=== PATIENT | female | born 2000 | race Caucasian/White ===

== ENCOUNTER → 2019-07-31 11:32 | Outpatient (CLI) | payer BC, MEDICAID, SELFPAY ==
[2019-07-31 11:23] VITALS: BMI 20.6
[2019-07-31 11:36] LABS: Mucous, Urine 0 SEEN /hpf (<or=2+); Red Blood Cells-Urine 0 SEEN /hpf (0-5); White Blood Cells 0 SEEN /hpf (0-5)
[2019-07-31 12:37] LABS: Absolute Lymphocyte Count 2.26 X10^3/uL (0.83-4.51); Absolute Neutrophil Count 4.7 X10^3/uL (2.0-7.7); Basophil# 0.06 X10^3/uL; Basophil% 0.7 % (0-1); Eosinophil# 0.25 X10^3/uL; Eosinophils% 3.1 % (0-5); Hematocrit 40.8 % (37-47); Hemoglobin 13.6 g/dL (12.0-15.0); Lymphocyte # 2.26 X10^3/ul (4.0); Lymphocyte % 28.2 % (19-41); Mean Corp Hgb Conc 33.3 g/dL (32-36); Mean Corpuscular Hgb 32.1 pg (27.0-32.0); Mean Corpuscular Volume 96.2 fL (81-99); Mean Platelet Vol. 9.5 fl (6.2-12.0); Monocyte# 0.71 X10^3/uL; Monocyte% 8.9 % (0-10); NRBC Flagged by Analyzer 0 % (0-5); Neutrophil # 4.69 X10^3/uL (2.7-7.7); Neutrophil % 58.6 % (47-70); Platelet Count 281 K/mm3 (150-450); RBC Distribution Width CV 12.5 % (11.6-14.6); Red Blood Count 4.24 M/mm3 (4.2-5.4)
[2019-07-31 12:40] LABS: Color, Urine Yellow (Yellow); Glucose, Dipstick Normal (Normal); Ketone-Dipstick Negative (Negative); Leukocyte Esterase-Dipstick Negative /ul (Negative); Nitrite-Dipstick Positive (Negative); Occult Blood-Urine Negative /ul (Negative); Protein-Dipstick Negative (Negative); Urine Bilirubin Dipstick Negative (Negative); Urine Clarity Sl. Cloudy (Clear); Urine Urobilinogen Normal (Normal); Urine pH 6.5 (5.0 - 8.0)
[2019-07-31 12:47] LABS: Bacteria 2+ /hpf (None Seen); Squamous Epithelial Cells - UA 5-10 SEEN /hpf (5-10)
[2019-07-31 12:48] LABS: Internal QC Validated? YES +Cl - CLEAR BKGD
[2019-07-31 12:52] LABS: Pregnancy, Urine Positive Negative
[2019-07-31 13:23] LABS: ALB/GLOB Ratio 1.1 RATIO (0.9-2.4); AST(SGOT) 16 U/L (15-37); Alanine Aminotransfer ALT/SGPT 24 U/L (13-56); Albumin, Serum 3.6 g/dL (3.2-5.0); Alkaline Phosphatase 85 U/L (45-117); Anion Gap 4 (5-15); BUN 9 mg/dL (7-18); BUN/Creat Ratio 17.8 RATIO (10-20); Calcium,Total 8.9 mg/dL (8.5-10.1); Chloride 107 mmol/L (98-107); Cholesterol 137 mg/dL (200); Creatinine, Serum 0.51 mg/dL (0.55-1.02); EST Glomerular Filtration Rate 164 mL/min (>60); Est Glom Filt Rate - Afr Amer 198 mL/min (>60); Globulin 3.3 g/dL (2.2-4.2); Glucose 75 mg/dL (74-106); High Density Lipoprotein 43 mg/dL; Protein, Total 6.9 g/dL (6.4-8.2); Sodium Level 139 mmol/L (136-145); Thyroid Stim Hormone (TSH) 1.47 uIU/mL (0.358-3.74); Triglycerides 66 mg/dL; Very Low Density Lipoprotein 13 mg/dL (5-40)
[2019-07-31 14:04] LABS: HIV - WCH Non-Reactive (Nonreactive); Hepatitis B Surface Antigen Non-Reactive (Nonreactive)
[2019-07-31 14:08] LABS: Chlamydia Trachomatis by PCR Negative (Negative); Neisserai gonorrhoeae by PCR Negative (Negative); Probe Check PASS; Sample Adequacy Control PASS; Specimen Processing Control PASS
[2019-07-31 16:29] LABS: hCG Titer Quant., Serum 33 mIU/mL (1-3)
[2019-08-01 04:09] LABS: Hepatitis C Ab 0.1 s/co ratio (0.0-0.9)
== END ==
LOC: BIMLAB 11:34 → LAB 15:20 → BIMLAB 15:24
PROVIDERS: Obstetrics & Gynecology; PCP Internal Medicine; Referring Provider Nurse Practitioner Family; Visit Provider Nurse Practitioner Family
DX: F19.10 Other psychoactive substance abuse, uncomplicated (principal); F15.10 Other stimulant abuse, uncomplicated; N39.0 Urinary tract infection, site not specified; N91.2 Amenorrhea, unspecified; Z72.51 High risk heterosexual behavior
CPT/HCPCS: 36415; 80053; 80061; 81001; 81025; 84443; 84702; 85025; 86703; 86803; 86804; 87086; 87088; 87186; 87340; 87491; 87591

== ENCOUNTER → 2019-08-05 09:29 | Outpatient (CLI) | payer BC, MEDICAID, SELFPAY ==
[2019-07-31 11:23] VITALS: BMI 20.6
[2019-08-05 10:56] LABS: hCG Titer Quant., Serum 686 mIU/mL (1-3)
== END ==
PROVIDERS: PCP Internal Medicine; Referring Provider Obstetrics & Gynecology; Visit Provider Obstetrics & Gynecology
DX: Z34.90 Encounter for supervision of normal pregnancy, unspecified, unspecified trimester (principal)
CPT/HCPCS: 36415; 84702

== ENCOUNTER → 2019-09-03 | Outpatient (CLI) | payer BC, MEDICAID, SELFPAY ==
[2019-09-03 12:06] VITALS: BMI 20.5
[2019-09-03 15:50] LABS: Amphetamine Urine VISTA NEGATIVE (<1000 ng/mL); Barbiturate Urine VISTA NEGATIVE (< 200 ng/mL); Benzodiazepine Urine VISTA NEGATIVE (< 200 ng/mL); Cocaine Urine VISTA NEGATIVE (< 300 ng/mL); Ecstacy Urine VISTA NEGATIVE (< 500 ng/mL); Methadone Urine VISTA NEGATIVE (< 300 ng/mL); PCP Urine VISTA NEGATIVE (< 25 ng/mL); THC Urine VISTA POSITIVE (< 50 ng/mL); Vista UDS pH Range 7
[2019-09-03 18:01] LABS: Chlamydia Trachomatis by PCR Negative (Negative); Neisserai gonorrhoeae by PCR Negative (Negative); Probe Check PASS; Sample Adequacy Control PASS; Specimen Processing Control PASS
== END | disposition home or self-care (01) ==
LOC: LABSPEC 15:18
PROVIDERS: PCP Internal Medicine; Referring Provider Obstetrics & Gynecology; Visit Provider Obstetrics & Gynecology
DX: O09.70 Supervision of high risk pregnancy due to social problems, unspecified trimester (principal); Z3A.00 Weeks of gestation of pregnancy not specified
CPT/HCPCS: 80307; 87086; 87088; 87186; 87491; 87591

== ENCOUNTER → 2019-10-05 08:55 | Outpatient (CLI) | payer BC, MEDICAID, SELFPAY ==
[2019-10-05 08:34] VITALS: BMI 20.5
[2019-10-05 09:23] LABS: Absolute Lymphocyte Count 2.17 X10^3/uL (0.83-4.51); Absolute Neutrophil Count 5.8 X10^3/uL (2.0-7.7); Basophil# 0.05 X10^3/uL; Basophil% 0.6 % (0-1); Eosinophil# 0.19 X10^3/uL; Eosinophils% 2.1 % (0-5); Hematocrit 38.5 % (37-47); Hemoglobin 13.3 g/dL (12.0-15.0); Lymphocyte # 2.17 X10^3/ul (4.0); Lymphocyte % 24.2 % (19-41); Mean Corp Hgb Conc 34.5 g/dL (32-36); Mean Corpuscular Hgb 32.8 pg (27.0-32.0); Mean Corpuscular Volume 94.8 fL (81-99); Mean Platelet Vol. 9.2 fl (6.2-12.0); Monocyte# 0.69 X10^3/uL; Monocyte% 7.7 % (0-10); NRBC Flagged by Analyzer 0 % (0-5); Neutrophil # 5.82 X10^3/uL (2.7-7.7); Neutrophil % 64.7 % (47-70); Platelet Count 251 K/mm3 (150-450); RBC Distribution Width CV 11.8 % (11.6-14.6); RBC Distribution Width SD 40.8 fl (35.1-43.9); Red Blood Count 4.06 M/mm3 (4.2-5.4)
[2019-10-05 10:01] LABS: NATERA MAILED SPECIMEN
[2019-10-05 10:27] LABS: HIV - WCH Non-Reactive (Nonreactive); Hepatitis B Surface Antigen Non-Reactive (Nonreactive); Hepatitis C Antibody Non-Reactive (Nonreactive); Rubella IgG 473.3 IU/mL
[2019-10-07 23:32] LABS: Rapid Plasmin Reagin (RPR) NONREACTIVE (NONREACTIVE)
== END ==
PROVIDERS: PCP Internal Medicine; Referring Provider Obstetrics & Gynecology; Visit Provider Obstetrics & Gynecology
DX: Z31.430 Encounter of female for testing for genetic disease carrier status for procreative management (principal); O09.70 Supervision of high risk pregnancy due to social problems, unspecified trimester; Z3A.00 Weeks of gestation of pregnancy not specified
CPT/HCPCS: 36415; 85025; 86592; 86703; 86762; 86803; 86850; 86900; 86901; 87340

== ENCOUNTER → 2019-11-17 | Outpatient (CLI) | payer BC, MEDICAID, SELFPAY ==
[2019-11-17 13:09] VITALS: BMI 20.5
== END | disposition home or self-care (01) ==
LOC: LABSPEC 15:32
PROVIDERS: PCP Internal Medicine; Referring Provider Obstetrics & Gynecology; Visit Provider Obstetrics & Gynecology
DX: O09.70 Supervision of high risk pregnancy due to social problems, unspecified trimester (principal); Z3A.00 Weeks of gestation of pregnancy not specified
CPT/HCPCS: 87077; 87086; 87088; 87186

== ENCOUNTER → 2019-12-18 | Outpatient (CLI) | payer BC, MEDICAID, SELFPAY ==
[2019-12-18 13:38] VITALS: BMI 20.5
== END | disposition home or self-care (01) ==
LOC: LABSPEC 16:11
PROVIDERS: PCP Internal Medicine; Referring Provider Obstetrics & Gynecology; Visit Provider Obstetrics & Gynecology
DX: O99.89 Other specified diseases and conditions complicating pregnancy, childbirth and the puerperium (principal); R82.71 Bacteriuria; Z3A.00 Weeks of gestation of pregnancy not specified
CPT/HCPCS: 87077; 87086; 87088; 87186

== ENCOUNTER → 2020-05-19 | Outpatient (CLI) | payer BC, MEDICAID, SELFPAY ==
[2020-05-19 13:04] VITALS: BMI 23.8
[2020-05-24 11:00] LABS: HPV Reflexed? NOT INDICATED
== END | disposition home or self-care (01) ==
LOC: LABSPEC 16:20
PROVIDERS: PCP Internal Medicine; Visit Provider Obstetrics & Gynecology
DX: Z12.4 Encounter for screening for malignant neoplasm of cervix (principal)
CPT/HCPCS: 88175; G0145

== ENCOUNTER 2022-08-04 12:12 | Inpatient (IN) | payer BC, MEDICAID, SELFPAY ==
[2022-08-04 12:13] VITALS: BP 104/68; PULSE 123; RESP 15; TEMP 36.7; O2SAT 97; BMI 16.5
--- NOTE | 2022-08-04 12:40 | EKG12_ITS ---
Test Reason : Blood Pressure : / mmHG Vent. Rate : 099 BPM Atrial Rate : 099 BPM P-R Int : 160 ms QRS Dur : 092 ms QT Int : 340 ms P-R-T Axes : 069 097 056 degrees QTc Int : 436 ms Normal sinus rhythm Normal ECG Confirmed by MAYCOL HERR, HAMZAH ([id number]), video editor NELDA NORIEGA ([id number]) on 08/06/2022 9:38:27 AM Referred By: ESTHER Confirmed By:HAMZAH SEVERINO MD
--- NOTE | 2022-08-04 13:17 | ED.RN ---
per dr. barrera pt does not need a sitter at this time.
--- NOTE | 2022-08-04 13:38 | EX.ED.SAOD ---
HPI History of Present Illness Chief Complaint: Suicidal Informant: patient Narrative Narrative: Patient is a 22-year-old female with long-term history of polysubstance abuse presenting for request for detox. Patient states he started using drugs since she was 16 years old and been using them pretty consistently. She usually snorts or smokes and has done IV drugs once. She uses marijuana, methamphetamines and benzodiazepines. Her Binz of choice is Klonopin but sometimes she will use Xanax as she cannot get Klonopin. She states she just cannot anymore. She has lost custody of her daughter is had significant weight loss so she would like to try to detox. She does report that she has had some depression but attributes it to the stress in her life and her drug use. She states she fights a lot with her boyfriend. She has thoughts that the world would be a better place without her and her daughter deserves a better mother but she denies any suicidal plan or active ideation. She denies any history of suicide attempt. Patient is hoping to go to [facility] after discharge from the hospital. Mother is at the bedside currently. No other complaints or concerns at this time. [facility] Medical History Drug abuse Marijuana use Methamphetamine abuse in remission Tobacco smoking complicating UTI (urinary tract infection) Home Medications trazodone 50 mg tablet 200 mg PO QHS 08/04/22 [History Last Taken Unknown] Allergy/AdvReac Type Severity Reaction Status Date / Time No Known Allergies Allergy Verified 08/04/22 12:13 Family History Mother Anxiety Grandfather Diabetes Surgical History History of appendectomy History of tonsillectomy Social History adopted: No household members: family housing: house current occupational status: employed 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 occupational exposures/hazards: No pets and animals: No history of recent travel: No sexually active: Yes Smoking Status: Current every day smoker tobacco type: e-cigarettes second hand exposure: Yes alcohol intake: never substance use type: marijuana and amphetamines seatbelt use: sometimes do you feel safe at home: Yes ROS ROS ED Constitutional Constitutional ED: Reports weight loss; Denies chills, fever(s) or sweats Eyes Eyes: Denies change in vision ENT ENT ED: Denies sore throat Cardiovascular Cardiovascular: Denies chest pain Respiratory/Chest Respiratory/Chest: Denies cough Gastrointestinal Gastrointestinal: Denies abdominal pain, nausea or vomiting Musculoskeletal Musculoskeletal: Denies arthralgias or myalgias Integumentary Denies rash Neurologic Neurologic: Denies headache(s) or weakness Psychiatric Psychiatric: Reports anxiety, depression and suicidal thoughts; Denies suicidal ideation EXAM Physical Exam Const Vital Signs: 08/04/22 12:13 Temperature 98.1 F Temperature Source Temporal Pulse Rate 123 H Respiratory Rate 15 Blood Pressure 104/68 Blood Pressure Mean 80 Pulse Ox 97 Oxygen Delivery Method Room Air Positive cachectic General Appearance ED: cachectic and NAD; Negative for pallor Nutritional Appearance: cachectic HEENT Reports moist mucous membranes atraumatic Eyes PERRL and EOMs intact bilaterally Neck supple Chest Wall inspection of chest normal and palpation of chest normal Resp normal respiratory effort and clear to auscultation bilaterally Cardio regular rhythm and no murmurs Rate: tachycardic GI soft to palpation and non-tender Extremity General Extremety ED: Negative for edema or tenderness General Extremity: Negative for edema Neuro oriented x3 Neuro Narrative: No focal deficits appreciated Sensorium / Orientation: alert Speech: speech normal Psych mental status grossly normal and thought process normal Psych Narrative: Patient admits to depression and what sounds like passive suicidal ideations however she has no active plan. Depression seems to be more situational associated with her drug use. Mood & Affect: Negative for tearful Skin General Skin Exam: Negative for jaundice or pallor Rashes: no rashes MDM MDM MDM Narrative Medical decision making narrative: Patient is evaluated for request for detox from amphetamines as well as benzodiazepines. Patient also reports depression and has some passive suicidal ideations. She is evaluated by the counseling center and we both agree that patient can be contracted for safety and further treated for her addiction. We do offer inpatient benzodiazepine detox and patient is agreeable this plan of care. Patient's urine drug is positive for cannabinoids, amphetamines and MDMA. Patient's vital signs upon arrival are in this consistent with tachycardia however she is not hypertensive, tremulous or delusional I do not think she is having signs of DTs at this time. Patient is agreeable to the terms of a ramp program. Case is discussed with admitting hospitalist who will admit the patient. Patient does have a mild leukocytosis however I do not have an obvious source of infection. Lab Data Labs: Laboratory Results - last 24 hr 08/04/22 08/04/22 08/04/22 13:40 13:40 13:40 WBC 16.1 H RBC 4.04 L Hgb 13.0 Hct 38.1 MCV 94.3 MCH 32.2 H MCHC 34.1 RDW Std Deviation 40.8 RDW Coeff of Anaid 11.8 Plt Count 327 MPV 8.5 Immature Gran % (Auto) 0.300 Neut % (Auto) 86.0 H Lymph % (Auto) 10.1 L [place] % (Auto) 3.1 Eos % (Auto) 0.2 Baso % (Auto) 0.3 Absolute Neuts (auto) 13.8 H Absolute Lymphs (auto) 1.63 Nucleated RBC % 0 Sodium 140 Potassium 3.1 L Chloride 107 Carbon Dioxide 25.0 Anion Gap 8 BUN 16 Creatinine 0.68 Estim Creat Clear Calc 82.92 Est GFR (MDRD) Af Amer 138 Est GFR (MDRD) Non-Af 114 BUN/Creatinine Ratio 23.6 H Glucose 77 Calcium 9.0 Total Bilirubin 0.60 AST 15 ALT 17 Alkaline Phosphatase 79 Total Protein 6.5 Albumin 3.7 Globulin 2.8 Albumin/Globulin Ratio 1.3 Serum , Qual Urine Opiates Screen Urine Methadone Screen Ur Barbiturates Screen Ur Phencyclidine Scrn Ur Amphetamines Screen MDMA (Ecstasy) Screen U Benzodiazepines Scrn Urine Cocaine Screen U Cannabinoids Screen Ur Drug Screen Comment Ethyl Alcohol < 3.0 08/04/22 08/04/22 13:40 14:55 WBC RBC Hgb Hct MCV MCH MCHC RDW Std Deviation RDW Coeff of Anaid Plt Count MPV Immature Gran % (Auto) Neut % (Auto) Lymph % (Auto) [place] % (Auto) Eos % (Auto) Baso % (Auto) Absolute Neuts (auto) Absolute Lymphs (auto) Nucleated RBC % Sodium Potassium Chloride Carbon Dioxide Anion Gap BUN Creatinine Estim Creat Clear Calc Est GFR (MDRD) Af Amer Est GFR (MDRD) Non-Af BUN/Creatinine Ratio Glucose Calcium Total Bilirubin AST ALT Alkaline Phosphatase Total Protein Albumin Globulin Albumin/Globulin Ratio Serum , Qual NEGATIVE Urine Opiates Screen NEGATIVE Urine Methadone Screen NEGATIVE Ur Barbiturates Screen NEGATIVE Ur Phencyclidine Scrn NEGATIVE Ur Amphetamines Screen POSITIVE H MDMA (Ecstasy) Screen POSITIVE H U Benzodiazepines Scrn NEGATIVE Urine Cocaine Screen NEGATIVE U Cannabinoids Screen POSITIVE H Ur Drug Screen Comment Ethyl Alcohol Rhythm Strip Rhythm Strip: Sinus Rhythm Rate: 99 Ectopy: None EKG Initial EKG: Attestation: I personally reviewed and interpreted this EKG as follows: Interpretation: Sinus Rhythm Comments: Normal sinus rhythm rate of 99 bpm Normal axis Normal intervals Normal ST segments No prior EKG available for comparison Discharge Plan Triage Chief Complaint: Suicidal Other Complaint: Substance Abuse ED Provider: Venecia Moreno Dx/Rx/DC Orders Clinical Impression: Benzodiazepine withdrawal, Anxiety and depression, Hypokalemia Prescriptions: No Action trazodone 50 mg tablet 200 mg PO QHS Label Comments: TAKE 1 TABLET BY MOUTH AT BEDTIME Primary Care Provider: Care Physician,No Primary Referrals: Care Physician,No Primary [Primary Care Provider] - Disposition Disposition: Acute Care Hospital [facility]
--- NOTE | 2022-08-04 13:44 | ED.RN ---
PER DR. BOWEN REQUEST, THIS RN CONTACTED [facility] CASH CONTROL SPECIALIST REGARDING PT REPORTING THOUGHTS OF SI. PER DR. BOWEN, PT SHOULD NOT NEED PLACEMENT, BUT MAY NEED RESOURCES AND SAFETY PLAN. [facility] REQUESTS THAT WE CALL CRISIS FOR PT CARE. CRISIS CALLED AT [phone]. AWAITING CALL BACK.
[2022-08-04 13:47] LABS: Absolute Lymphocyte Count 1.63 X10^3/uL (0.83-4.51); Absolute Neutrophil Count 13.8 X10^3/uL (2.0-7.7); Basophil# 0.05 X10^3/uL; Basophil% 0.3 % (0-1); Eosinophil# 0.03 X10^3/uL; Eosinophils% 0.2 % (0-5); Hematocrit 38.1 % (37-47); Lymphocyte # 1.63 X10^3/ul (0.83-4.51); Lymphocyte % 10.1 % (19-41); Mean Corp Hgb Conc 34.1 g/dL (32-36); Mean Corpuscular Hgb 32.2 pg (27.0-32.0); Mean Corpuscular Volume 94.3 fL (81-99); Mean Platelet Vol. 8.5 fl (6.2-12.0); Monocyte% 3.1 % (0-10); NRBC Flagged by Analyzer 0 % (0-5); Neutrophil # 13.84 X10^3/uL (2.7-7.7); Platelet Count 327 K/mm3 (150-450); RBC Distribution Width CV 11.8 % (11.6-14.6); RBC Distribution Width SD 40.8 fl (35.1-43.9); Red Blood Count 4.04 M/mm3 (4.2-5.4); White Blood Count 16.1 K/mm3 (4.4-11.0)
[2022-08-04 14:05] LABS: ALB/GLOB Ratio 1.3 RATIO (0.9-2.4); AST(SGOT) 15 U/L (15-37); Alanine Aminotransfer ALT/SGPT 17 U/L (13-56); Albumin, Serum 3.7 g/dL (3.2-5.0); Alkaline Phosphatase 79 U/L (45-117); Anion Gap 8 (5-15); BUN 16 mg/dL (7-18); BUN/Creat Ratio 23.6 RATIO (10-20); Chloride 107 mmol/L (98-107); Creatinine, Serum 0.68 mg/dL (0.55-1.02); EST Glomerular Filtration Rate 114 mL/min (>60); Est Glom Filt Rate - Afr Amer 138 mL/min (>60); Estimated Creatinine Clearance 82.92 ml/min; Globulin 2.8 g/dL (2.2-4.2); Glucose 77 mg/dL (74-106); Potassium 3.1 mmol/L (3.5-5.1); Protein, Total 6.5 g/dL (6.4-8.2); Sodium Level 140 mmol/L (136-145)
[2022-08-04 14:06] LABS: Internal QC Validated? YES +Cl - CLEAR BKGD; Pregnancy, Serum, hCG Quali. NEGATIVE Negative
[2022-08-04 14:08] LABS: Alcohol, Blood (Medical)-Serum < 3.0 mg/dL
--- NOTE | 2022-08-04 14:49 | ED.RN ---
PT REPORTS TO BODY LINER THAT SHE HAS A PLACE SHE WOULD LIKE TO GO WHEN SHE IS DISCHARGED FROM DETOX. [facility] PHONE NUMBER: [phone]. ADDRESS TO FACILITY IS [address] [place] [address].
--- NOTE | 2022-08-04 15:38 | HP.PCM.HOS_ITS ---
HPI - General General Date of Admission: 08/04/22 Date of Service: 08/04/22 Chief Complaint: benzo withdrawal HPI Narrative EMELY WEATHERS, is a 22 F who presents for benzodiazepine withdrawal. She uses klonopin but says she uses xanax if she doesnt get klonopin. She uses marijuana and methamphetamines also. She presents today requesting for detox; she has lost significant amount of weight and also says she has lost custody of her daughter and is depressed about all her life choices. She has thought of suicide but denies any history of suicidal attempt. She denies any fever, chills, cough, chest pain, palpitations, dizziness, nausea, vomiting or diarrhea. Review of systems is otherwise negative Vitals wre BP of 104/68, AK of 123, RR of 15 and temp of 98.1F. She was saturating at 97% on room air. CBC showed hb of 13, wbc of 16.1, platelets of 327 and chemsitry was significant for potassium of 3.1. Urine tox was positive for amphetamines, MDMA and cannabinoids. Serum alcohol level was <3. She was evaluated by mental health crises team and cleared for admission. She is being admitted for benzodiazepine withdrawal. [facility] Medical History Drug abuse Marijuana use Methamphetamine abuse in remission Tobacco smoking complicating UTI (urinary tract infection) Home Medications trazodone 50 mg tablet 200 mg PO QHS 08/04/22 [History Last Taken Unknown] Allergy/AdvReac Type Severity Reaction Status Date / Time No Known Allergies Allergy Verified 08/04/22 12:13 Family History Mother Anxiety Grandfather Diabetes Surgical History History of appendectomy History of tonsillectomy Social History adopted: No household members: family housing: house current occupational status: employed 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 occupational exposures/hazards: No pets and animals: No history of recent travel: No sexually active: Yes Smoking Status: Current every day smoker tobacco type: e-cigarettes second hand exposure: Yes alcohol intake: never substance use type: marijuana and amphetamines seatbelt use: sometimes do you feel safe at home: Yes ROS Constitutional Constitutional: Reports anorexia and fatigue; Denies chills, malaise or weakness Eyes Eyes: Denies change in vision ENT HEENT: Denies dysphagia, headache(s), hearing loss, nasal congestion, sinus pressure or sore throat Cardiovascular Cardiovascular: Reports palpitations and rapid heart rate; Denies chest pain, dyspnea on exertion, edema, lightheadedness, orthopnea, paroxysmal nocturnal dyspnea or syncope Respiratory/Chest Respiratory/Chest: Denies cough, dyspnea, productive cough, shortness of breath at rest or shortness of breath with exertion Gastrointestinal Gastrointestinal: Denies abdominal pain, constipation, diarrhea, nausea or vomiting Genitourinary Genitourinary: Denies burning urination or dysuria Musculoskeletal Musculoskeletal: Denies arthralgias Neurologic Neurologic: Denies confusion, dizziness, focal weakness or headache(s) Psychiatric Psychiatric: Reports anxiety and depression Hematologic/Lymphatic Hematologic/Lymphatic: Denies anemia Vital Signs Vital Signs Vital Signs: 08/04/22 12:13 Temperature 98.1 F Temperature Source Temporal Pulse Rate 123 H Respiratory Rate 15 Blood Pressure 104/68 Blood Pressure Mean 80 Pulse Ox 97 Oxygen Delivery Method Room Air Weight Weight: 90 lb Body Mass Index (BMI) 16.5 Physical Exam Const alert and oriented x3 Constitutional Narrative: anxious General Appearance: cooperative HEENT normocephalic, head/scalp atraumatic, hearing grossly normal bilaterally and moist oral mucous membranes Mouth: oral and palatal mucosa normal Eyes PERRL and conjunctivae normal Resp normal respiratory effort, no retractions, no use of accessory muscles and clear to auscultation bilaterally Cardio regular rate, regular rhythm, S1 normal heart sound, S2 normal heart sound and no murmurs GI normal to inspection, nondistended, normoactive bowel sounds, soft to palpation, non-tender and non-distended Extremity normal to inspection, full ROM and no clubbing, cyanosis or edema Neuro oriented x3, CN's II-XII intact bilaterally, moves all extremities and no focal motor deficits Sensorium / Orientation: awake and alert Speech: speech normal Motor Exam: strength 5/5 throughout Psych Mood & Affect: anxious Results Lab / Micro Data Result Diagrams: 08/04/22 13:40 08/04/22 13:40 Labs: Laboratory Results - last 24 hr 08/04/22 13:40: WBC 16.1 H, RBC 4.04 L, Hgb 13.0, Hct 38.1, MCV 94.3, MCH 32.2 H , MCHC 34.1, RDW Std Deviation 40.8, RDW Coeff of Anaid 11.8, Plt Count 327, MPV 8.5, Immature Gran % (Auto) 0.300, Neut % (Auto) 86.0 H, Lymph % (Auto) 10.1 L, [place] % (Auto) 3.1, Eos % (Auto) 0.2, Baso % (Auto) 0.3, Absolute Neuts (auto) 13.8 H, Absolute Lymphs (auto) 1.63, Nucleated RBC % 0 08/04/22 13:40: Sodium 140, Potassium 3.1 L, Chloride 107, Carbon Dioxide 25.0, Anion Gap 8, BUN 16, Creatinine 0.68, Estim Creat Clear Calc 82.92, Est GFR (MDRD) Af Amer 138, Est GFR (MDRD) Non-Af 114, BUN/Creatinine Ratio 23.6 H, Glucose 77, Calcium 9.0, Total Bilirubin 0.60, AST 15, ALT 17, Alkaline Phosp hatase 79, Total Protein 6.5, Albumin 3.7, Globulin 2.8, Albumin/Globulin Ratio 1.3 08/04/22 13:40: Ethyl Alcohol < 3.0 08/04/22 13:40: Serum , Qual NEGATIVE 08/04/22 14:55: Ur Drug Screen Comment Micro: Microbiology 08/04/22 13:30 Nasal Secretion SARS-CoV-2 Antigen (Rapid) - Final Rhythm Strip Rhythm Strip: Sinus Rhythm Rate: 99 Ectopy: None Assessment & Plan Assessment/Plan (1) Benzodiazepine withdrawal: PLAN: Plan #Acute benzodiazepine withdrawal * admit to med surg * urine tox positive for amphetamines, MDMA and cannabinoids * start on benzodiazepine withdrawal with phenobarbital * adjunctive meds for symptomatic relief * #Anxiety and depression: * not on any meds right now. On trazodone qhs * Admitted to previous suicidal ideation but denied so now. * Will need to establish care with Psychiatry once she is discharged. DVT prophylaxis: low risk, encourage to ambulate Disposition: * wants to be discharged to [facility] [place] facility once she is stable for discharge. * Case management to help facilitate discharge planint. Charges/Coding Visit Charges Inpatient E&M: 08577 Init Hosp L3
[2022-08-04 15:40] LABS: Amphetamine Urine VISTA POSITIVE (<1000 ng/mL); Barbiturate Urine VISTA NEGATIVE (< 200 ng/mL); Benzodiazepine Urine VISTA NEGATIVE (< 200 ng/mL); Cocaine Urine VISTA NEGATIVE (< 300 ng/mL); Ecstacy Urine VISTA POSITIVE (< 500 ng/mL); Methadone Urine VISTA NEGATIVE (< 300 ng/mL); PCP Urine VISTA NEGATIVE (< 25 ng/mL); THC Urine VISTA POSITIVE (< 50 ng/mL); Vista UDS pH Range 6
[2022-08-04 16:05] VITALS: BP 99/75; PULSE 115; RESP 20; TEMP 36.6; O2SAT 100
[2022-08-04 17:20] VITALS: PULSE 115; BMI 16.5
[2022-08-04 18:08] VITALS: BP 115/75; PULSE 112; RESP 18; TEMP 37.1; O2SAT 100
[2022-08-04] MEDS: Phenobarbital 32.4 MG Tablet PO (18:15)
[2022-08-04] MEDS: Gabapentin 300 MG Capsule PO (18:15)
--- NOTE | 2022-08-04 19:22 | CM.ED ---
Late Entry: SW was contacted by the pharmacist in charge owner that patient had reported SI. EDITA advised pharmacist in charge owner to call crisis. Debi MENDEZ
--- NOTE | 2022-08-04 19:26 | CM.ED ---
EDITA called Susana treatment navigator international logistics manager and updated her that patient was in the ED and now on the floor requesting detox. Susana said that she will speak with Titi and determine if patient will be seen on Saturday or Saturday. Debi MENDEZ
[2022-08-04 22:21] VITALS: BP 101/54; PULSE 106; RESP 16; TEMP 36.7; O2SAT 96
--- NOTE | 2022-08-04 22:25 | NURSING ---
pt too drowsy to take hs meds. did pull away from nurse when tried to get vs and turned onto stomach, tried again and pt turned onto back so vs could be obtained. pt had her phone and vape pen falling out of her hospital gown pocket. placed in lock med cloth cutting machine operator her room, 2nd rn markos witness. also notified rn palliative
[2022-08-05 02:00] VITALS: BP 108/72; PULSE 97; RESP 13; TEMP 36.7; O2SAT 94
[2022-08-05] MEDS: Phenobarbital 32.4 MG Tablet PO ×5 (02:04→22:15)
[2022-08-05 06:37] VITALS: BP 106/61; PULSE 87; RESP 12; TEMP 36.6; O2SAT 100
[2022-08-05] MEDS: Gabapentin 300 MG Capsule PO ×2 (06:44→14:14)
[2022-08-05 07:36] VITALS: O2SAT 96
--- NOTE | 2022-08-05 07:43 | PN.HOSP_ITS ---
Subjective Subjective Patient is a 22-year-old female admitted with benzo withdrawal admitted to regular nursing floor managed with phenobarb taper Objective Data Objective Data Vital Signs: Vital Signs Temp Pulse Resp BP Pulse Ox O2 Del Method 97.8 F 87 12 106/61 96 Room Air 08/05/22 06:37 08/05/22 06:37 08/05/22 06:37 08/05/22 06:37 08/05/22 07:36 08/05/22 07:36 Oxygen Delivery Method Room Air Weight: 40.88 kg Body Mass Index (BMI) 16.5 Lab / Micro Data Result Diagrams: 08/04/22 13:40 08/04/22 13:40 Labs: Laboratory Results - last 24 hr 08/04/22 13:40: WBC 16.1 H, RBC 4.04 L, Hgb 13.0, Hct 38.1, MCV 94.3, MCH 32.2 H , MCHC 34.1, RDW Std Deviation 40.8, RDW Coeff of Anaid 11.8, Plt Count 327, MPV 8.5, Immature Gran % (Auto) 0.300, Neut % (Auto) 86.0 H, Lymph % (Auto) 10.1 L, [place] % (Auto) 3.1, Eos % (Auto) 0.2, Baso % (Auto) 0.3, Absolute Neuts (auto) 13.8 H, Absolute Lymphs (auto) 1.63, Nucleated RBC % 0 08/04/22 13:40: Sodium 140, Potassium 3.1 L, Chloride 107, Carbon Dioxide 25.0, Anion Gap 8, BUN 16, Creatinine 0.68, Estim Creat Clear Calc 82.92, Est GFR (MDRD) Af Amer 138, Est GFR (MDRD) Non-Af 114, BUN/Creatinine Ratio 23.6 H, Glucose 77, Calcium 9.0, Total Bilirubin 0.60, AST 15, ALT 17, Alkaline Phosphatase 79, Total Protein 6.5, Albumin 3.7, Globulin 2.8, Albumin/Globulin Ratio 1.3 08/04/22 13:40: Ethyl Alcohol < 3.0 08/04/22 13:40: Serum , Qual NEGATIVE 08/04/22 14:55: Urine Opiates Screen NEGATIVE, Urine Methadone Screen NEGATIVE, Ur Barbiturates Screen NEGATIVE, Ur Phencyclidine Scrn NEGATIVE, Ur Amphetamines Screen POSITIVE H, MDMA (Ecstasy) Screen POSITIVE H, U Benzodiazepines Scrn NEGATIVE, Urine Cocaine Screen NEGATIVE, U Cannabinoids Screen POSITIVE H, Ur Drug Screen Comment Micro: Microbiology 08/04/22 13:30 Nasal Secretion SARS-CoV-2 Antigen (Rapid) - Final Rhythm Strip Rhythm Strip: Sinus Rhythm Rate: 99 Ectopy: None Assessment & Plan Assessment/Plan (1) Benzodiazepine withdrawal: PLAN: Plan Patient is a 22-year-old female admitted with benzo withdrawal admitted to regular nursing floor managed with phenobarb taper 1. Acute benzo withdrawal ? Admitted to regular nursing floor managed with phenobarb taper as well as adjuvant medications for symptom relief 2. Polysubstance abuse ? Patient urine tox screen was positive for amphetamines MDMA as well as cannabinoids. Patient was counseled on the need for cessation 3. Depression with anxiety ? Patient is on trazodone at night 4. DVT prophylaxis ? Low risk did encourage any ambulation Disposition: -wants to be discharged to [place] facility once she is stable for discharge. -Case management to help facilitate discharge Time spent in the patient's overall evaluation,decision-making process, review of diagnostic data, adjustment of management, discussion with other providers, nursing nursing and ancillary staff involved in patient's care documentation, 36 Minutes Charges/Coding Visit Charges Inpatient E&M: 88136 Subs Hosp L2
[2022-08-05 10:03] VITALS: BP 101/61; PULSE 81; RESP 16; TEMP 37; O2SAT 100
[2022-08-05] MEDS: hydrOXYzine PAM 25 MG Capsule 50 MG PO (10:06)
[2022-08-05 14:18] VITALS: BP 103/74; PULSE 72; RESP 16; TEMP 36.6; O2SAT 100
[2022-08-05 20:15] VITALS: BP 109/64; PULSE 85; RESP 14; TEMP 36.6; O2SAT 100
[2022-08-05] MEDS: traZODone 100 MG Tablet 200 MG PO (22:19)
[2022-08-06] MEDS: Phenobarbital 32.4 MG Tablet PO ×6 (02:18→20:59)
[2022-08-06 02:26] VITALS: BP 94/58; PULSE 83; RESP 14; TEMP 36.7; O2SAT 97
--- NOTE | 2022-08-06 07:38 | PCM.PN.HOSP ---
Subjective Subjective f/u bez detox, phenobarb taper Hurting all over and generally just does not feel good but no specific complaints Objective Data Objective Data Vital Signs: Vital Signs Temp Pulse Resp BP Pulse Ox O2 Del Method 98.1 F 83 14 94/58 L 97 Room Air 08/06/22 02:26 08/06/22 02:26 08/06/22 02:26 08/06/22 02:26 08/06/22 02:26 08/06/22 02:26 Oxygen Delivery Method Room Air Weight: 40.88 kg Body Mass Index (BMI) 16.5 Lab / Micro Data Result Diagrams: 08/04/22 13:40 08/04/22 13:40 Micro: Microbiology 08/04/22 13:30 Nasal Secretion SARS-CoV-2 Antigen (Rapid) - Final Rhythm Strip Rhythm Strip: Sinus Rhythm Rate: 99 Ectopy: None Physical Exam Const alert and no apparent distress Constitutional Narrative: Oriented HEENT normocephalic and head/scalp atraumatic Eyes Eyes Narrative: EOM grossly intact, anicteric Neck supple Resp normal respiratory effort and clear to auscultation bilaterally Cardio regular rate and regular rhythm GI soft to palpation, non-tender and non-distended Extremity Extremity Narrative: No edema appreciated Neuro moves all extremities Neuro Narrative: No overt focal deficits appreciated Psych Psych Narrative: Cooperative Assessment & Plan Assessment/Plan (1) Benzodiazepine withdrawal: PLAN: Plan Patient is a 22-year-old female admitted with benzo withdrawal admitted to regular nursing floor managed with phenobarb taper 1.? Acute benzo withdrawal ? Admitted to regular nursing floor managed with phenobarb taper as well as adjuvant medications for symptom relief Last dose of phenobarbital will be 08/08 at 1999, [place] for inpt rehab on d/c 2.? Polysubstance abuse ? Patient urine tox screen was positive for amphetamines MDMA as well as cannabinoids.? encourage cessation 3.? Depression with anxiety ? Patient is on trazodone at night #DVT ppx: Ambulatory, low risk Danae Stephen MD Time spent in the patient's overall evaluation,decision-making process, review of diagnostic data, adjustment of management, discussion with other providers, nursing nursing and ancillary staff involved in patient's care documentation, 20 minutes Charges/Coding Visit Charges Inpatient E&M: 30849 Subs Hosp L1
[2022-08-06 08:00] VITALS: BP 102/64; PULSE 80; RESP 16; TEMP 36.2; O2SAT 97
[2022-08-06] MEDS: Gabapentin 300 MG Capsule PO (09:42)
[2022-08-06 13:00] LABS: Mucous, Urine 0 SEEN /hpf (<or=2+); Red Blood Cells-Urine 0 SEEN /hpf (0-5); White Blood Cells 0 SEEN /hpf (0-5)
[2022-08-06 13:06] LABS: Glucose, Dipstick Normal (Normal); Ketone-Dipstick Negative (Negative); Leukocyte Esterase-Dipstick 25 /ul (Negative); Nitrite-Dipstick Negative (Negative); Occult Blood-Urine 25 /ul (Negative); Protein-Dipstick Negative (Negative); Specific Gravity, Urine 1.025 (1.002-1.030); Urine Bilirubin Dipstick Negative (Negative); Urine Urobilinogen Normal (Normal)
[2022-08-06 13:07] LABS: Color, Urine Yellow (Yellow); Urine Clarity Cloudy (Clear)
[2022-08-06 13:16] LABS: Bacteria 3+ /hpf (None Seen); Squamous Epithelial Cells - UA 0-5 SEEN /hpf (5-10)
[2022-08-06 13:58] VITALS: BP 99/67; PULSE 94; RESP 16; TEMP 36.3; O2SAT 97
--- NOTE | 2022-08-06 15:22 | ADDICTION ---
This underwriter mortgage loan met with PT to conduct ASAM, MSE, AUDIT assessments and to plan for d/c. PT A+Ox4 and participated actively. All assessments completed, faxed to [facility] and placed in PT's chart. PT plans to f/u with individual counselor at [facility] in [place] for outpatient treatment services. PT did not indicate a need for transportation post d/c from [facility].
--- NOTE | 2022-08-06 15:31 | CHAPLAIN ---
Type of Pastoral Visit _x__ Initial Visit ___ Follow-up Visit ___ On-call Visit ___ General Patient Visit ___ Spiritual Assessment ___ Family Conference ___ Bereavement ___ Rapid Response ___ Code Blue ___ Other (describe below) Pastoral Care Referral From _x__ Patient ___ Family ___ Nurse ___ Physician ___ Highway Worker ___ Material Handling Equipment Stevedore ___ Other (describe below) Sacrament/Intervention _x__ Active listening ___ Anointing ___ Anabaptist ___ Bereavement ___ Communion ___ [place] exploration ___ _x__ Life review _x__ Prayer ___ Reconciliation ___ Sacrament of Sick _x__ Supportive presence ___ Wedding ___ Other (describe below) Pastoral Comments patient is welcoming and states that she has some blurred vision and that I'm confused about some things; pt was asked about her life and her story; pt says she has a two year old that she misses very much, that she has been an addict as long as I could be an addict; pt is asked about her 'confusion' and her response is to ask where her phone is, when she will be able to leave, and other simple questions; pt states she is going to [facility] in [place] along with her boyfriend who is also an addict; pt welcomes prayer and the opportunity to talk
[2022-08-06 17:17] VITALS: BP 91/62; PULSE 90; RESP 16; TEMP 36.4; O2SAT 100
[2022-08-06] MEDS: traZODone 100 MG Tablet 200 MG PO (20:59)
[2022-08-06 21:00] VITALS: BP 94/52; PULSE 92; RESP 16; TEMP 36.7; O2SAT 95
[2022-08-07] MEDS: Phenobarbital 32.4 MG Tablet PO ×4 (02:27→20:55)
[2022-08-07 02:28] VITALS: BP 95/49; PULSE 69; RESP 16; TEMP 36.6; O2SAT 98
--- NOTE | 2022-08-07 07:59 | PCM.PN.HOSP ---
Subjective Subjective Follow-up benzodiazepine withdrawal. Feeling roughly the same, no specific complaints Objective Data Objective Data Vital Signs: Vital Signs Temp Pulse Resp BP Pulse Ox O2 Del Method 97.8 F 69 16 95/49 L 98 Room Air 08/07/22 02:28 08/07/22 02:28 08/07/22 02:28 08/07/22 02:28 08/07/22 02:28 08/07/22 02:28 Oxygen Delivery Method Room Air Weight: 40.88 kg Body Mass Index (BMI) 16.5 Lab / Micro Data Result Diagrams: 08/04/22 13:40 08/04/22 13:40 Labs: Laboratory Results - last 24 hr 08/06/22 12:45: Urine Color Yellow, Urine Clarity Cloudy, Urine pH 6.0, Ur Specific [place] 1.025, Urine Protein Negative, Urine Glucose (UA) Normal, Urine Ketones Negative, Urine Occult Blood 25 H, Urine Nitrite Negative, Urine Bilirubin Negative, Urine Urobilinogen Normal, Ur Leukocyte Esterase 25 H, Urine RBC 0 SEEN, Urine WBC 0 SEEN, Ur Squamous Epith Cells 0-5 SEEN, Urine Bacteria 3+, Urine Mucus 0 SEEN Micro: Microbiology 08/04/22 13:30 Nasal Secretion SARS-CoV-2 Antigen (Rapid) - Final Rhythm Strip Rhythm Strip: Sinus Rhythm Rate: 99 Ectopy: None Physical Exam Narrative General: Alert, oriented, no apparent distress HEENT: Atraumatic, normocephalic Eyes: extraocular movements grossly intact Neck: Supple Respiratory: normal respiratory effort Cardiovascular: no edema appreciated GI: nondistended Extremities: Moving all extremities Neuro: No overt focal neurological deficits Psych: Cooperative Assessment & Plan Assessment/Plan (1) Benzodiazepine withdrawal: PLAN: Plan Patient is a 22-year-old female admitted with benzo withdrawal admitted to regular nursing floor managed with phenobarb taper 1.? Acute benzo withdrawal ? Admitted to regular nursing floor managed with phenobarb taper as well as adjuvant medications for symptom relief Will plan to DC to [place] tomorrow 2.? Polysubstance abuse ? Patient urine tox screen was positive for amphetamines MDMA as well as cannabinoids.? encourage cessation 3.? Depression with anxiety ? Patient is on trazodone at night #DVT ppx: Ambulatory, low risk Danae Stephen MD Time spent in the patient's overall evaluation,decision-making process, review of diagnostic data, adjustment of management, discussion with other providers, nursing nursing and ancillary staff involved in patient's care documentation, 20 minutes Charges/Coding Visit Charges Inpatient E&M: 53861 Subs Hosp L1
[2022-08-07] MEDS: Gabapentin 300 MG Capsule PO (08:21)
[2022-08-07] MEDS: hydrOXYzine PAM 25 MG Capsule 50 MG PO (08:21)
[2022-08-07 08:24] VITALS: BP 94/65; PULSE 86; RESP 16; TEMP 36.8; O2SAT 98
[2022-08-07 14:12] VITALS: BP 100/61; PULSE 89; RESP 16; TEMP 36.6; O2SAT 98
[2022-08-07 20:44] VITALS: BP 106/64; PULSE 88; RESP 16; TEMP 36.4; O2SAT 98
[2022-08-07] MEDS: traZODone 100 MG Tablet 200 MG PO (20:55)
[2022-08-08] MEDS: Phenobarbital 32.4 MG Tablet PO ×2 (02:30→08:56)
[2022-08-08 02:38] VITALS: BP 95/47; PULSE 88; RESP 16; TEMP 36.6; O2SAT 98
[2022-08-08] MEDS: Ensure Plus High Protein 120 ML LIQUID PO (08:56)
[2022-08-08 09:19] VITALS: BP 96/54; PULSE 87; RESP 18; TEMP 36.6; O2SAT 99
--- NOTE | 2022-08-08 17:50 | PCM.DC.SUM ---
Providers Date of Admission: 08/04/22 Primary Care Physician: Mary Grace Primary Care Phys Reason For Visit: BENZODIAZEPINE WITHDRAWAL Diagnosis Discharge Diagnosis (1) Benzodiazepine withdrawal: Status: Acute Code(s): F13.939 - Sedative, hypnotic or anxiolytic use, unspecified with withdrawal, unspecified Plan Patient is a 22-year-old female admitted with benzo withdrawal admitted to regular nursing floor managed with phenobarb taper 1.? Acute benzo withdrawal 2.? Polysubstance abuse 3.? Depression with anxiety Medications at Discharge Home Medications trazodone 50 mg tablet 200 mg PO QHS 08/04/22 Hospital Course Summary of Care Provided Hospital Course: 22 with since specifically requesting benzodiazepine detox and was placed on phenobarb taper. Had given conflicting statements of if she wanted to be discharged to an inpatient rehab versus outpatient. Had been stable and doing well and decided to leave AMA on 08/08/2022. Attempted to go talk to her but she was not in her room. PATIENT LEFT AMA Weight / BMI Weight Weight: 40.88 kg Body Mass Index (BMI) 16.5 ABG / Lab / Microbiology Data Result Diagrams: 08/04/22 13:40 08/04/22 13:40 Microbiology: Microbiology 08/04/22 13:30 Nasal Secretion SARS-CoV-2 Antigen (Rapid) - Final Meaningful Use Info Meaningful Use Diagnoses (Choose all that apply): None applicable Discharge Plan Admission Admit Date/Time: 08/04/22 15:50 Attending Provider: Danae Stephen Primary Care Provider: Care Physician,No Primary Consulting Providers: Tesha Estrada ; Tr Mock Discharge Orders/Prescriptions Prescriptions: No Action trazodone 50 mg tablet 200 mg PO QHS Label Comments: TAKE 1 TABLET BY MOUTH AT BEDTIME Referrals / Follow Up: Care Physician,No Primary [Primary Care Provider] - Disposition Disposition (needs filled in before D/C Order can be placed): Against Medical Advice
== END 2022-08-08 10:30 | disposition left against medical advice (07) | DRG 894 ==
LOC: ED 15:56 → MS3 16:01
PROVIDERS: Admitting Provider Student in an Organized Health Care Education/Training Program; Emergency Provider Emergency Medicine; Visit Provider Internal Medicine
DX: F19.239 Other psychoactive substance dependence with withdrawal, unspecified (principal); Z68.1 Body mass index [BMI] 19.9 or less, adult; E87.6 Hypokalemia; F15.10 Other stimulant abuse, uncomplicated; F41.9 Anxiety disorder, unspecified; F12.10 Cannabis abuse, uncomplicated; F17.290 Nicotine dependence, other tobacco product, uncomplicated; F32.A Depression, unspecified; R63.0 Anorexia; Z53.29 Procedure and treatment not carried out because of patient's decision for other reasons; Z65.3 Problems related to other legal circumstances
CPT/HCPCS: 80053; 80307; 81001; 82077; 84703; 85025; 87811; 93005; 99283